=== PATIENT | female | born 1990 | race Caucasian/White ===

== ENCOUNTER 2017-06-11 07:18 | Observation (INO) | payer BC ==
[~2017-06-11] VITALS: Ht 154.9 cm; Wt 84.1 kg
[2017-06-11] MEDS ORDERED: PREN1TAB60 PO (07:36)
[2017-06-11 07:54] VITALS: BP 109/67
[2017-06-11] MEDS ORDERED: D5%-LACTATED RINGERS 1,000 ML IV SCH ×2 (08:40)
[2017-06-11] MEDS ORDERED: LACTATED RINGERS 1,000 ML IVBOLUS ONE (09:00)
== END 2017-06-11 12:38 | disposition home or self-care (01) ==
LOC: LDOP 07:18 → LDIP 08:29
PROVIDERS: ADMIT Obstetrics & Gynecology Gynecology; ATTEND Obstetrics & Gynecology Gynecology
DX: O62.9 Abnormality of forces of labor, unspecified (principal); Z3A.36 36 weeks gestation of pregnancy
CPT/HCPCS: 59025; 96360; 96361; G0378; J7120; J7121

== ENCOUNTER 2017-06-22 09:51 | Inpatient (IN) | payer BC ==
[~2017-06-22] VITALS: Ht 154.9 cm; Wt 85.0 kg
[~2017-06-22 09:51] MED LIST: PREN1TAB60 PO
[2017-06-22] MEDS ORDERED: LACTATED RINGERS 1,000 ML IV SCH ×2 (09:57→10:00)
[2017-06-22] MEDS ORDERED: OXYTOCIN 30U/ 0.9% NaCL 500ML 500 ML IV SCH (09:57)
[2017-06-22] MEDS ORDERED: METOCLOPRAMIDE 5 MG/ML, 2ML IV ONE (10:00)
[2017-06-22] MEDS ORDERED: SODIUM CITRATE/CITRIC ACID 30 ML UDC PO ONE (10:00)
[2017-06-22] MEDS ORDERED: LACTATED RINGERS 1,000 ML IVBOLUS ONE (10:00)
[2017-06-22 10:08] VITALS: BP 104/55
[2017-06-22] MEDS ORDERED: PLEASE ENTER HEIGHT AND WEIGHT MC SCH (10:30)
[2017-06-22] MEDS ORDERED: OXYTOCIN 30U/ 0.9% NaCL 500ML 500 ML ONE ×3 (10:36→15:34)
[2017-06-22] MEDS ORDERED: NEWBORN KIT ONE (10:36)
[2017-06-22 10:49] LABS: BASOPHILS # (AUTO) 0.09 x10^3/uL (0-0.1); BASOPHILS % (AUTO) 1 % (0-1); EOSINOPHILS # (AUTO) 0.16 x10^3/uL (0-0.4); EOSINOPHILS % (AUTO) 2 % (1-7); LYMPHOCYTES % (AUTO) 22 % (22-44); MD NO; MEAN CORPUSCULAR HEMOGLOBIN 29.4 pg (27.0-34.8); MEAN CORPUSCULAR HGB CONC 34.2 g/dL (32.4-35.8); MEAN CORPUSCULAR VOLUME 86.2 fL (80-100); MEAN PLATELET VOLUME 8.4 fL (7.4-10.4); MONOCYTES # (AUTO) 0.68 x10^3/uL (0.2-0.8); MONOCYTES % (AUTO) 7 % (2-9); NEUTROPHILS # (AUTO) 7.06 x10^3/uL (1.8-6.8); NEUTROPHILS % (AUTO) 69 % (42-75); PLATELET COUNT 363 x10^3/uL (130-400); RED CELL DISTRIBUTION WIDTH 15.9 % (9.6-15.2)
[2017-06-22] MEDS ORDERED: SODIUM CITRATE/CITRIC ACID 30 ML UDC ONE (10:57)
[2017-06-22] MEDS ORDERED: morphine SULFATE/PF 1 MG/ML, 10ML ONE (12:06)
[2017-06-22] MEDS ORDERED: WATER-INJECTION,STERILE 10 ML IV ONE (12:08)
[2017-06-22] MEDS ORDERED: DEXAMETHASONE 4 MG/ML, 1ML ONE (12:08)
[2017-06-22] MEDS ORDERED: KETOROLAC 30 MG/1 ML ONE ×2 (12:08→15:06)
[2017-06-22] MEDS ORDERED: CEFAZOLIN 1,000 MG ONE (12:08)
[2017-06-22] MEDS ORDERED: OXYTOCIN 10 UNITS/ML, 1ML ONE (12:09)
[2017-06-22] MEDS ORDERED: ONDANSETRON ODT 4 MG ONE (12:22)
[2017-06-22] MEDS: OXYTOCIN 30U/ 0.9% NaCL 500ML 500 ML IV SCH ×2 (12:30→15:53)
[2017-06-22] MEDS ORDERED: MISOPROSTOL 200 MCG TABLET PR PRN (12:30)
[2017-06-22] MEDS ORDERED: IBUPROFEN 600 MG TABLET PO PRN (12:30)
[2017-06-22] MEDS ORDERED: ONDANSETRON 2MG/ML, 2ML IV PRN (12:30)
[2017-06-22] MEDS ORDERED: CALCIUM CARBONATE 500 MG TAB.CHEW PO PRN (12:30)
[2017-06-22] MEDS ORDERED: SIMETHICONE 80 MG CHEW TAB PO PRN (12:30)
[2017-06-22] MEDS: LACTATED RINGERS 1,000 ML IV SCH ×4 (12:30→20:30)
[2017-06-22] MEDS ORDERED: DIPH,PERTUSS(ACELL),TET VAC/PF NC IM-VACC PRN (12:30)
[2017-06-22] MEDS ORDERED: OXYcodone IR 5MG TABLET PO PRN (12:30)
[2017-06-22] MEDS ORDERED: MEASLES,MUMPS&RUBELLA VACC/PF 0.5 ML SQ-VACC PRN (12:30)
[2017-06-22] MEDS ORDERED: morphine SULFATE 10 MG/ML, 1ML IVPush PRN (12:30)
[2017-06-22] MEDS ORDERED: RHOGAM FROM BLOOD BANK 1 NOTE EA IM/IV ONE (12:30)
[2017-06-22] MEDS: KETOROLAC 30 MG/1 ML IV SCH ×2 (15:08→21:10)
[2017-06-22] MEDS ORDERED: HYDROmorphone 2 MG/ML, 1ML ONE (16:05)
[2017-06-22] MEDS ORDERED: HYDROmorphone 1 MG/ML, 1ML IV ONE (16:30)
[2017-06-22 16:40] VITALS: BP 103/65
[2017-06-22 20:00] VITALS: BP 95/62
[2017-06-22 21:23] LABS: BASOPHILS # (AUTO) 0.05 x10^3/uL (0-0.1); BASOPHILS % (AUTO) 0 % (0-1); EOSINOPHILS % (AUTO) 0 % (1-7); LYMPHOCYTES # (AUTO) 1.51 x10^3/uL (1-3.4); LYMPHOCYTES % (AUTO) 10 % (22-44); MD NO; MEAN CORPUSCULAR HEMOGLOBIN 29.9 pg (27.0-34.8); MEAN CORPUSCULAR HGB CONC 34.2 g/dL (32.4-35.8); MEAN CORPUSCULAR VOLUME 87.2 fL (80-100); MEAN PLATELET VOLUME 8.2 fL (7.4-10.4); MONOCYTES % (AUTO) 3 % (2-9); NEUTROPHILS # (AUTO) 12.68 x10^3/uL (1.8-6.8); NEUTROPHILS % (AUTO) 86 % (42-75); PLATELET COUNT 349 x10^3/uL (130-400); RED BLOOD COUNT 3.33 x10^6/uL (3.82-5.3); RED CELL DISTRIBUTION WIDTH 15.8 % (9.6-15.2)
[2017-06-23] VITALS: BP 92/58
[2017-06-23] MEDS: KETOROLAC 30 MG/1 ML IV SCH ×4 (03:09→21:29)
[2017-06-23] MEDS: LACTATED RINGERS 1,000 ML IV SCH ×5 (04:30→20:30)
[2017-06-23 05:00] VITALS: BP 90/58
[2017-06-23 08:00] VITALS: BP 92/57
[2017-06-23] MEDS: OXYTOCIN 30U/ 0.9% NaCL 500ML 500 ML IV SCH ×2 (08:30→18:30)
[2017-06-23] MEDS: DOCUSATE 100 MG CAPSULE PO PRN ×2 (08:46→20:06)
[2017-06-23] MEDS: PRENATAL VIT/IRON/FA 1 EACH TABLET PO SCH (08:46)
[2017-06-23 20:00] VITALS: BP 129/72
[2017-06-23] MEDS: OXYcodone/APAP 5/325MG TABLET PO PRN (20:06)
[2017-06-24] MEDS: KETOROLAC 30 MG/1 ML IV SCH ×2 (03:00→08:57)
[2017-06-24] MEDS: OXYTOCIN 30U/ 0.9% NaCL 500ML 500 ML IV SCH (04:30)
[2017-06-24] MEDS: LACTATED RINGERS 1,000 ML IV SCH ×3 (04:30→12:34)
[2017-06-24 07:25] VITALS: BP 112/70
[2017-06-24] MEDS ORDERED: OXYC-302 PO (08:38)
[2017-06-24] MEDS ORDERED: IBUP-1222 PO (08:38)
[2017-06-24] MEDS ORDERED: DOCU-131 PO (08:38)
[2017-06-24] MEDS: PRENATAL VIT/IRON/FA 1 EACH TABLET PO SCH (08:57)
[2017-06-24] MEDS: DOCUSATE 100 MG CAPSULE PO PRN (08:57)
[2017-06-24] MEDS: OXYcodone/APAP 5/325MG TABLET PO PRN (12:26)
== END 2017-06-24 14:50 | disposition home or self-care (01) | DRG 765 ==
LOC: LDIP 09:51 → 2NW 16:32
PROVIDERS: ADMIT Obstetrics & Gynecology Gynecology; ATTEND Obstetrics & Gynecology Gynecology
PROC: 10D00Z1 Extraction of Products of Conception, Low, Open Approach (ICD-10-PCS; principal; 2017-06-22)
PROC: 3E0234Z Introduction of Serum, Toxoid and Vaccine into Muscle, Percutaneous Approach (ICD-10-PCS; 2017-06-22)
DX: O30.043 Twin pregnancy, dichorionic/diamniotic, third trimester (principal); O36.4XX2 Maternal care for intrauterine death, fetus 2; O32.1XX1 Maternal care for breech presentation, fetus 1; O32.1XX2 Maternal care for breech presentation, fetus 2; Z37.3 Twins, one liveborn and one stillborn; Z3A.37 37 weeks gestation of pregnancy; Z80.0 Family history of malignant neoplasm of digestive organs; Z3A.26 26 weeks gestation of pregnancy; Z23 Encounter for immunization
CPT/HCPCS: 36415; 82803; 85025; 86850; 86900; 88307; 90715; 96374; 96375; J0690; J1100; J1170; J1885; J2274; Q0162; J2590; J2765; J7120